=== PATIENT | male | born 1985 | race Caucasian/White ===

== ENCOUNTER 2019-04-24 | Emergency (ER) | payer OTHER ==
[2019-04-24 03:04] LABS: HEMATOCRIT 50.5 % (39.0-50.0); HEMOGLOBIN 16.7 g/dl (14.0-18.0); IMMATURE GRANULOCYTES 0.3 % (0.0-5.0); MEAN CELL VOLUME 88.6 fL CALC (80.0-100.0); MEAN CORPUSCULAR HGB 29.3 pG CALC (26.0-32.0); MEAN CORPUSCULAR HGB CONC 33.1 g/L CALC (32.0-36.0); NEUT# 9.28 thou/uL (1.82-7.42); RED BLOOD COUNT 5.7 mill/uL (4.70-6.10); RED CELL DISTRI WIDTH 12.7 % (11.5-15.5)
[2019-04-24 03:08] LABS: ALBUMIN 4.8 g/dL (3.2-5.0); ALKALINE PHOSPHATASE 68 u/l (38-126); ANION GAP 15 (6-22 (CALC)); BILIRUBIN, TOTAL 0.7 mg/dL (0.0-1.4); BUN 22 mg/dL (9-20); BUN/CREATININE RATIO 24 (12-20 (CALC)); CARBON DIOXIDE 27 mmol/l (22-30); CHLORIDE 102 mmol/l (95-108); CREATININE 0.9 mg/dL (0.7-1.3); GFR > 60 ML/MIN (>=60 (CALC)); GFR FOR AFR.AMER. > 60 ML/MIN (>=60 (CALC)); POTASSIUM 4.3 mmol/l (3.5-5.1); SGOT/AST 35 u/l (17-59); SODIUM 139 mmol/l (137-146); TOTAL PROTEIN 8.8 g/dL (6.3-8.2)
[2019-04-24 03:12] LABS: ACT PARTIAL THROMBO TIME 26.7 SECONDS (20.0-32.5); D-DIMER 0.37 mg/L (0.19-0.60); PROTHROMBIN TIME 10.2 SECONDS (9.0-12.5)
[2019-04-24 03:19] LABS: MYOGLOBIN 24 ng/mL (0 - 121)
--- NOTE | 2019-04-24 03:28 | NUR ---
BREATHING TREATMENT GIVEN.
[2019-04-24] MEDS ORDERED: TAM75CAP PO (04:21)
[2019-04-24] MEDS ORDERED: VOLTAREN - GENE75 MG PO (04:21)
[2019-04-24] MEDS ORDERED: TRAMADOL HCL50 MG PO (04:21)
== END 2019-04-24 04:35 | disposition home or self-care (01) | DRG 195 ==
PROVIDERS: Family Medicine
DX: J10.1 Influenza due to other identified influenza virus with other respiratory manifestations (principal); M54.16 Radiculopathy, lumbar region
CPT/HCPCS: J0131

== ENCOUNTER 2020-04-20 09:54 | Emergency (ER) | payer OTHER ==
[~2020-04-20] VITALS: Ht 193 cm; Wt 172.0 kg
[~2020-04-20 09:54] MED LIST: TAM75CAP PO; TRAMADOL HCL50 MG PO; VOLTAREN - GENE75 MG PO
[2020-04-20 10:35] LABS: HEMATOCRIT 46.8 % (39.0-50.0); HEMOGLOBIN 14.9 g/dl (14.0-18.0); IMMATURE GRANULOCYTES 0.6 % (0.0-5.0); MEAN CELL VOLUME 91.2 fL CALC (80.0-100.0); MEAN CORPUSCULAR HGB CONC 31.8 g/dL CAL (32.0-36.0); NEUT# 3.6 thou/uL (1.82-7.42); RED BLOOD COUNT 5.13 mill/uL (4.70-6.10); RED CELL DISTRI WIDTH 13.1 % (11.5-15.5)
[2020-04-20 11:06] LABS: ALBUMIN 3.9 g/dL (3.2-5.0); ALKALINE PHOSPHATASE 55 u/l (38-126); ANION GAP 12 (6-22 (CALC)); BILIRUBIN, TOTAL 0.7 mg/dL (0.0-1.4); BUN 15 mg/dL (9-20); BUN/CREATININE RATIO 18 (12-20 (CALC)); C-REACTIVE PROTEIN 1.7 mg/dL (0-0.9); CARBON DIOXIDE 25 mmol/l (22-30); CHLORIDE 105 mmol/l (95-108); CREATININE 0.9 mg/dL (0.7-1.3); GFR > 60 ML/MIN (>=60 (CALC)); GFR FOR AFR.AMER. > 60 ML/MIN (>=60 (CALC)); POTASSIUM 4.1 mmol/l (3.5-5.1); SGOT/AST 33 u/l (17-59); SODIUM 137 mmol/l (137-146); TOTAL PROTEIN 6.9 g/dL (6.3-8.2)
[2020-04-20] MEDS ORDERED: ZOFRAN4 M1 PO (12:44)
[2020-04-20] MEDS ORDERED: ZPAK PO (12:44)
[2020-04-20 13:35] VITALS: BP 119/68
== END 2020-04-20 13:40 | disposition home or self-care (01) | DRG 179 ==
LOC: ED 09:54
PROVIDERS: Family Medicine
DX: U07.1 COVID-19 (principal); R07.89 Other chest pain; E66.01 Morbid (severe) obesity due to excess calories

== ENCOUNTER 2020-04-23 12:22 | Inpatient (IN) | payer OTHER ==
[~2020-04-23] VITALS: Ht 193 cm; Wt 171.1 kg
[~2020-04-23 12:22] MED LIST changes: +ZOFRAN4 M1 PO; +ZPAK PO
[2020-04-23 13:40] LABS: IMMATURE GRANULOCYTES 0.4 % (0.0-5.0); MEAN CELL VOLUME 88.3 fL CALC (80.0-100.0); MEAN CORPUSCULAR HGB 28.8 pG CALC (26.0-32.0); MEAN CORPUSCULAR HGB CONC 32.7 g/dL CAL (32.0-36.0); NEUT# 4.9 thou/uL (1.82-7.42); RED BLOOD COUNT 5.55 mill/uL (4.70-6.10); RED CELL DISTRI WIDTH 13.2 % (11.5-15.5)
[2020-04-23 14:08] LABS: ALBUMIN 4.2 g/dL (3.2-5.0); ALKALINE PHOSPHATASE 73 u/l (38-126); ANION GAP 13 (6-22 (CALC)); BUN 13 mg/dL (9-20); BUN/CREATININE RATIO 17 (12-20 (CALC)); CARBON DIOXIDE 28 mmol/l (22-30); CHLORIDE 105 mmol/l (95-108); CREATININE 0.8 mg/dL (0.7-1.3); GFR > 60 ML/MIN (>=60 (CALC)); GFR FOR AFR.AMER. > 60 ML/MIN (>=60 (CALC)); POTASSIUM 4.2 mmol/l (3.5-5.1); SGOT/AST 53 u/l (17-59); SODIUM 141 mmol/l (137-146); TOTAL PROTEIN 7.4 g/dL (6.3-8.2)
[2020-04-23 19:05] VITALS: BP 170/86
[2020-04-24 00:10] VITALS: BP 149/83
[2020-04-24 04:00] VITALS: BP 145/90
[2020-04-24 10:50] VITALS: BP 129/78
[2020-04-24 16:00] VITALS: BP 135/88
[2020-04-24 20:00] VITALS: BP 168/81
[2020-04-25] VITALS (7 sets, daily range): BP systolic 107–161; BP diastolic 64–88
[2020-04-25 05:57] LABS: IMMATURE GRANULOCYTES 0.2 % (0.0-5.0); MEAN CELL VOLUME 89.8 fL CALC (80.0-100.0); MEAN CORPUSCULAR HGB 28.9 pG CALC (26.0-32.0); MEAN CORPUSCULAR HGB CONC 32.2 g/dL CAL (32.0-36.0); NEUT# 5.66 thou/uL (1.82-7.42); RED BLOOD COUNT 4.71 mill/uL (4.70-6.10)
[2020-04-25 06:15] LABS: HEMATOCRIT 42.3 % (39.0-50.0); HEMOGLOBIN 13.6 g/dl (14.0-18.0)
[2020-04-25 06:18] LABS: ALKALINE PHOSPHATASE 60 u/l (38-126); ANION GAP 11 (6-22 (CALC)); BUN 18 mg/dL (9-20); BUN/CREATININE RATIO 22 (12-20 (CALC)); CARBON DIOXIDE 26 mmol/l (22-30); CHLORIDE 109 mmol/l (95-108); CREATININE 0.8 mg/dL (0.7-1.3); GFR > 60 ML/MIN (>=60 (CALC)); GFR FOR AFR.AMER. > 60 ML/MIN (>=60 (CALC)); POTASSIUM 4.1 mmol/l (3.5-5.1); SGOT/AST 55 u/l (17-59); SODIUM 141 mmol/l (137-146)
[2020-04-25 06:28] LABS: ALBUMIN 3.3 g/dL (3.2-5.0); BILIRUBIN, TOTAL 0.5 mg/dL (0.0-1.4)
[2020-04-26] VITALS: BP 147/76
[2020-04-26 04:00] VITALS: BP 116/75
[2020-04-26 07:40] VITALS: BP 111/70
[2020-04-26 10:30] VITALS: BP 135/79
[2020-04-26 15:00] VITALS: BP 151/84
[2020-04-26 19:00] VITALS: BP 155/95
[2020-04-27] VITALS: BP 152/87
[2020-04-27 04:00] VITALS: BP 125/87
[2020-04-27 06:22] LABS: HEMATOCRIT 43.7 % (39.0-50.0); IMMATURE GRANULOCYTES 0.8 % (0.0-5.0); MEAN CELL VOLUME 89.9 fL CALC (80.0-100.0); MEAN CORPUSCULAR HGB 28.8 pG CALC (26.0-32.0); NEUT# 8.74 thou/uL (1.82-7.42); RED BLOOD COUNT 4.86 mill/uL (4.70-6.10); RED CELL DISTRI WIDTH 12.8 % (11.5-15.5)
[2020-04-27 06:48] LABS: ALBUMIN 3.4 g/dL (3.2-5.0); ALKALINE PHOSPHATASE 57 u/l (38-126); ANION GAP 12 (6-22 (CALC)); BILIRUBIN, TOTAL 0.4 mg/dL (0.0-1.4); BUN 14 mg/dL (9-20); BUN/CREATININE RATIO 18 (12-20 (CALC)); C-REACTIVE PROTEIN 0.6 mg/dL (0-0.9); CARBON DIOXIDE 25 mmol/l (22-30); CHLORIDE 105 mmol/l (95-108); CREATININE 0.8 mg/dL (0.7-1.3); GFR > 60 ML/MIN (>=60 (CALC)); GFR FOR AFR.AMER. > 60 ML/MIN (>=60 (CALC)); POTASSIUM 4.3 mmol/l (3.5-5.1); SGOT/AST 34 u/l (17-59); SODIUM 139 mmol/l (137-146); TOTAL PROTEIN 6.1 g/dL (6.3-8.2)
[2020-04-27 08:39] VITALS: BP 149/85
[2020-04-27 11:08] VITALS: BP 143/74
[2020-04-27 15:30] VITALS: BP 126/82
[2020-04-27 19:00] VITALS: BP 137/80
[2020-04-28 04:00] VITALS: BP 119/73
[2020-04-28 08:25] VITALS: BP 125/77
[2020-04-28] MEDS ORDERED: DEXAMETHASON6 MG PO (15:01)
[2020-04-28] MEDS ORDERED: ALPRAZOLAM0.5 M2 PO (15:02)
[2020-04-28 15:38] VITALS: BP 137/85
== END 2020-04-28 16:07 | disposition home or self-care (01) | DRG 177 ==
LOC: ED 12:22 → ED-I 17:06 → ED 17:14 → MS2 17:15
PROVIDERS: Nurse Practitioner; Physician Assistant; ADMIT Internal Medicine; ATTEND Internal Medicine
PROC: XW033E5 Introduction of Remdesivir Anti-infective into Peripheral Vein, Percutaneous Approach, New Technology Group 5 (ICD-10-PCS; principal; 2020-04-24)
DX: U07.1 COVID-19 (principal); J12.82 Pneumonia due to coronavirus disease 2019; J96.01 Acute respiratory failure with hypoxia; Z68.42 Body mass index [BMI] 45.0-49.9, adult; R50.9 Fever, unspecified; R53.1 Weakness; J10.1 Influenza due to other identified influenza virus with other respiratory manifestations; E66.9 Obesity, unspecified; E86.0 Dehydration; F41.9 Anxiety disorder, unspecified
CPT/HCPCS: J1650; Q9967

== ENCOUNTER 2020-05-21 20:13 | Emergency (ER) | payer OTHER ==
[~2020-05-21] VITALS: Ht 193 cm; Wt 172.7 kg
[~2020-05-21 20:13] MED LIST changes: +ALPRAZOLAM0.5 M2 PO; +DEXAMETHASON6 MG PO
[2020-05-21 21:46] LABS: HEMATOCRIT 46.6 % (39.0-50.0); IMMATURE GRANULOCYTES 0.6 % (0.0-5.0); MEAN CORPUSCULAR HGB 29.3 pG CALC (26.0-32.0); MEAN CORPUSCULAR HGB CONC 32.2 g/dL CAL (32.0-36.0); NEUT# 5.61 thou/uL (1.82-7.42); RED BLOOD COUNT 5.12 mill/uL (4.70-6.10); RED CELL DISTRI WIDTH 13.4 % (11.5-15.5)
[2020-05-21] MEDS ORDERED: ESCITALOPRAM OXA5 MG PO (21:52)
[2020-05-21 22:06] LABS: INTERNATIONAL NORMALIZED RATIO 1.1 RATIO (0.7-1.3); PROTHROMBIN TIME 10.9 SECONDS (9.0-12.5)
[2020-05-21 22:17] LABS: ALKALINE PHOSPHATASE 74 u/l (38-126); ANION GAP 10 (6-22 (CALC)); BILIRUBIN, TOTAL 0.4 mg/dL (0.0-1.4); BUN 17 mg/dL (9-20); BUN/CREATININE RATIO 20 (12-20 (CALC)); CARBON DIOXIDE 29 mmol/l (22-30); CHLORIDE 104 mmol/l (95-108); CREATININE 0.8 mg/dL (0.7-1.3); GFR > 60 ML/MIN (>=60 (CALC)); GFR FOR AFR.AMER. > 60 ML/MIN (>=60 (CALC)); POTASSIUM 4.1 mmol/l (3.5-5.1); SGOT/AST 29 u/l (17-59); SODIUM 138 mmol/l (137-146)
[2020-05-21 22:21] LABS: ALBUMIN 4.1 g/dL (3.2-5.0); TOTAL PROTEIN 7.4 g/dL (6.3-8.2)
[2020-05-21 22:29] LABS: MYOGLOBIN 28 ng/mL (0 - 121)
[2020-05-22 01:15] VITALS: BP 131/85
== END 2020-05-22 01:15 | disposition home or self-care (01) | DRG 204 ==
LOC: ED 20:13
PROVIDERS: Family Medicine
DX: R06.02 Shortness of breath (principal); R53.1 Weakness; R05 Cough; Z86.16 Personal history of COVID-19; Z20.822 Contact with and (suspected) exposure to COVID-19; R09.02 Hypoxemia
CPT/HCPCS: Q9967

== ENCOUNTER 2020-07-14 02:52 | Emergency (ER) | payer OTHER ==
[~2020-07-14] VITALS: Ht 193 cm; Wt 177.0 kg
[~2020-07-14 02:52] MED LIST changes: +ESCITALOPRAM OXA5 MG PO
[2020-07-14] MEDS ORDERED: OXYCOD/APAP1 TA1 PO (03:18)
[2020-07-14] MEDS ORDERED: PERCOCET 5/325M1 TAB PO (04:47)
[2020-07-14 05:29] VITALS: BP 126/69
== END 2020-07-14 05:25 | disposition home or self-care (01) | DRG 563 ==
LOC: ED 02:52
DX: S39.012A Strain of muscle, fascia and tendon of lower back, initial encounter (principal); F41.9 Anxiety disorder, unspecified; X58.XXXA Exposure to other specified factors, initial encounter; Z86.16 Personal history of COVID-19

== ENCOUNTER 2020-10-09 11:55 | Emergency (ER) | payer OTHER ==
[~2020-10-09] VITALS: Ht 193 cm; Wt 181.8 kg
[~2020-10-09 11:55] MED LIST changes: +OXYCOD/APAP1 TA1 PO; +PERCOCET 5/325M1 TAB PO
[2020-10-09 12:42] LABS: HEMATOCRIT 46.8 % (39.0-50.0); HEMOGLOBIN 15.5 g/dl (14.0-18.0); IMMATURE GRANULOCYTES 0.5 % (0.0-5.0); MEAN CELL VOLUME 89.3 fL CALC (80.0-100.0); MEAN CORPUSCULAR HGB 29.6 pG CALC (26.0-32.0); MEAN CORPUSCULAR HGB CONC 33.1 g/dL CAL (32.0-36.0); NEUT# 5.9 thou/uL (1.82-7.42); RED BLOOD COUNT 5.24 mill/uL (4.70-6.10); RED CELL DISTRI WIDTH 13.1 % (11.5-15.5)
[2020-10-09 13:05] LABS: ALBUMIN 4.3 g/dL (3.2-5.0); ALKALINE PHOSPHATASE 73 u/l (38-126); AMYLASE 55 u/l (30-110); ANION GAP 12 (6-22 (CALC)); BILIRUBIN, TOTAL 0.5 mg/dL (0.0-1.4); BUN 15 mg/dL (9-20); BUN/CREATININE RATIO 18 (12-20 (CALC)); CARBON DIOXIDE 29 mmol/l (22-30); CHLORIDE 102 mmol/l (95-108); CREATININE 0.8 mg/dL (0.7-1.3); GFR > 60 ML/MIN (>=60 (CALC)); GFR FOR AFR.AMER. > 60 ML/MIN (>=60 (CALC)); LIPASE 79 u/l (23-300); POTASSIUM 4.2 mmol/l (3.5-5.1); SGOT/AST 35 u/l (17-59); SODIUM 139 mmol/l (137-146); TOTAL PROTEIN 7.9 g/dL (6.3-8.2)
[2020-10-09 13:18] LABS: MYOGLOBIN 27 ng/mL (0 - 121)
[2020-10-09] MEDS ORDERED: METAXALONE800 M1 PO (13:27)
[2020-10-09] MEDS ORDERED: CELEBREX400 MG PO (13:28)
[2020-10-09 14:14] LABS: URINE BILIRUBIN - DIPSTICK NEGATIVE (NEGATIVE); URINE BLOOD DIPSTICK NEGATIVE (NEGATIVE); URINE COLOR YELLOW; URINE GLUCOSE - DIPSTICK NEGATIVE (NEGATIVE); URINE KETONE NEGATIVE (NEGATIVE); URINE LEUK ESTERASE NEGATIVE (NEGATIVE); URINE PH 5.5 (4.5-8.0); URINE PROTEIN - DIPSTICK NEGATIVE (NEG-TRACE); URINE SPECIFIC GRAVITY >=1.030; URINE UROBILINOGEN - DIPSTICK 0.2 E.U./dL (0.2)
[2020-10-09 14:34] LABS: URINE NITRITE - DIPSTICK NEGATIVE (Negative)
[2020-10-09] MEDS ORDERED: MOTRIN800 MG PO (19:25)
[2020-10-09 20:07] VITALS: BP 134/66
[2020-10-25] MEDS ORDERED: ALBUTEROL SUL0.083 % IN (18:38)
== END 2020-10-09 20:15 | disposition home or self-care (01) | DRG 204 ==
LOC: ED 11:55
PROVIDERS: Emergency Medicine
DX: R06.02 Shortness of breath (principal); R07.9 Chest pain, unspecified; F41.9 Anxiety disorder, unspecified; J98.4 Other disorders of lung; Z86.16 Personal history of COVID-19; Z82.49 Family history of ischemic heart disease and other diseases of the circulatory system; R07.89 Other chest pain
CPT/HCPCS: Q9967

== ENCOUNTER 2021-05-22 09:06 | Emergency (ER) | payer OTHER, MEDICAID ==
[~2021-05-22] VITALS: Ht 193 cm; Wt 189.0 kg
[~2021-05-22 09:06] MED LIST changes: +ALBUTEROL SUL0.083 % IN; +CELEBREX400 MG PO; +METAXALONE800 M1 PO; +MOTRIN800 MG PO
[2021-05-22] MEDS ORDERED: LORTAB 1010 MG PO (09:38)
[2021-05-22 09:50] VITALS: BP 128/59
== END 2021-05-22 09:50 | disposition home or self-care (01) | DRG 552 ==
LOC: ED 09:06
DX: M54.41 Lumbago with sciatica, right side (principal); Z68.43 Body mass index [BMI] 50.0-59.9, adult; E66.9 Obesity, unspecified; F41.9 Anxiety disorder, unspecified; Z86.16 Personal history of COVID-19

== ENCOUNTER 2021-05-26 11:40 | Emergency (ER) | payer OTHER, MEDICAID ==
[~2021-05-26] VITALS: Ht 193 cm; Wt 188.0 kg
[~2021-05-26 11:40] MED LIST changes: +LORTAB 1010 MG PO
[2021-05-26] MEDS ORDERED: EPIPEN 2-P0.3 MG/0.3 IM (14:52)
[2021-05-26] MEDS ORDERED: PREDNISONE50 MG PO (14:52)
[2021-05-26 15:57] VITALS: BP 149/71
== END 2021-05-26 15:57 | disposition home or self-care (01) | DRG 607 ==
LOC: ED 11:40
DX: L50.0 Allergic urticaria (principal); E66.9 Obesity, unspecified; F41.9 Anxiety disorder, unspecified; Z86.16 Personal history of COVID-19

== ENCOUNTER 2021-06-07 03:33 | Emergency (ER) | payer OTHER, MEDICAID ==
[~2021-06-07] VITALS: Ht 193 cm; Wt 188.0 kg
[~2021-06-07 03:33] MED LIST changes: +EPIPEN 2-P0.3 MG/0.3 IM; +PREDNISONE50 MG PO
[2021-06-07 05:30] VITALS: BP 98/64
[2021-06-07 06:00] VITALS: BP 119/72
[2021-06-07] MEDS ORDERED: MEDDOSEPAK PO (06:05)
[2021-06-07 06:30] VITALS: BP 118/74
[2021-06-07 07:00] VITALS: BP 124/75
[2021-06-07 07:19] VITALS: BP 124/75
== END 2021-06-07 07:16 | disposition home or self-care (01) | DRG 607 ==
LOC: ED 03:33
DX: L50.0 Allergic urticaria (principal); F41.9 Anxiety disorder, unspecified; Z86.16 Personal history of COVID-19

== ENCOUNTER 2021-06-13 07:06 | Emergency (ER) | payer OTHER, MEDICAID ==
[~2021-06-13] VITALS: Ht 193 cm; Wt 150.0 kg
[~2021-06-13 07:06] MED LIST changes: +MEDDOSEPAK PO
[2021-06-13 09:00] VITALS: BP 115/69
[2021-06-13] MEDS ORDERED: PREDNISONE20 MG PO ×2 (14:33→14:43)
[2021-06-13] MEDS ORDERED: PREDNISONE10 MG PO (14:33)
[2021-06-13] MEDS ORDERED: BENADRYL25 M1 PO (14:44)
[2021-06-13] MEDS ORDERED: PEPCID40 MG PO (14:44)
== END 2021-06-13 13:30 | disposition home or self-care (01) | DRG 607 ==
LOC: ED 07:06
DX: L50.0 Allergic urticaria (principal); F41.9 Anxiety disorder, unspecified; Z86.16 Personal history of COVID-19

== ENCOUNTER 2021-12-09 02:45 | Emergency (ER) | payer OTHER, MEDICAID ==
[~2021-12-09] VITALS: Ht 193 cm; Wt 184.0 kg
[2021-12-09] VITALS (9 sets, daily range): BP systolic 125–175; BP diastolic 77–125
[~2021-12-09 02:45] MED LIST changes: +BENADRYL25 M1 PO; +PEPCID40 MG PO; +PREDNISONE10 MG PO; +PREDNISONE20 MG PO
[2021-12-09] MEDS ORDERED: BACLOFEN10 MG PO (03:12)
[2021-12-09] MEDS ORDERED: ZYRTEC10 MG PO (03:13)
[2021-12-09 03:23] LABS: HEMATOCRIT 45.9 % (39.0-50.0); HEMOGLOBIN 15.2 g/dl (14.0-18.0); IMMATURE GRANULOCYTES 0.1 % (0.0-5.0); MEAN CELL VOLUME 89.8 fL CALC (80.0-100.0); MEAN CORPUSCULAR HGB 29.7 pG CALC (26.0-32.0); MEAN CORPUSCULAR HGB CONC 33.1 g/dL CAL (32.0-36.0); NEUT# 5.58 thou/uL (1.82-7.42); RED BLOOD COUNT 5.11 mill/uL (4.70-6.10); RED CELL DISTRI WIDTH 12.9 % (11.5-15.5)
[2021-12-09 03:37] LABS: ALBUMIN 4.3 g/dL (3.2-5.0); ALKALINE PHOSPHATASE 94 u/l (38-126); ANION GAP 12 (6-22 (CALC)); BILIRUBIN, TOTAL 0.4 mg/dL (0.0-1.4); BUN 14 mg/dL (9-20); BUN/CREATININE RATIO 18 (12-20 (CALC)); CARBON DIOXIDE 29 mmol/l (22-30); CHLORIDE 103 mmol/l (95-108); CREATININE 0.8 mg/dL (0.7-1.3); GFR FOR AFR.AMER. > 60 ML/MIN (>=60 (CALC)); GFR OTHER RACES > 60 ML/MIN (>=60 (CALC)); SGOT/AST 31 u/l (17-59); SODIUM 141 mmol/l (137-146); TOTAL PROTEIN 7.6 g/dL (6.3-8.2)
[2021-12-09] MEDS ORDERED: FIORICET PO (05:10)
[2021-12-09] MEDS ORDERED: ONDANSETRON4 MG PO (05:11)
[2021-12-12] MEDS ORDERED: VENTOLIN HFA IN (14:15)
[2021-12-12] MEDS ORDERED: IMITREX25 MG PO (14:15)
== END 2021-12-09 05:38 | disposition home or self-care (01) | DRG 103 ==
LOC: ED 02:45
PROVIDERS: Emergency Medicine
DX: G43.909 Migraine, unspecified, not intractable, without status migrainosus (principal); I10 Essential (primary) hypertension; F41.9 Anxiety disorder, unspecified; Z86.16 Personal history of COVID-19

== ENCOUNTER 2021-12-13 08:32 | Day surgery (SDC) | payer OTHER, MEDICAID ==
[~2021-12-13] VITALS: Ht 193 cm; Wt 185.1 kg
[~2021-12-13 08:32] MED LIST changes: +BACLOFEN10 MG PO; +FIORICET PO; +IMITREX25 MG PO; +ONDANSETRON4 MG PO; +VENTOLIN HFA IN; +ZYRTEC10 MG PO
[2021-12-13 10:57] VITALS: BP 116/75
== END 2021-12-13 10:41 | disposition home or self-care (01) | DRG 556 ==
LOC: ORM 08:32
PROVIDERS: ATTEND Physical Medicine & Rehabilitation
DX: M79.18 Myalgia, other site (principal); M54.89 Other dorsalgia; G89.4 Chronic pain syndrome

== ENCOUNTER 2021-12-16 15:33 | Emergency (ER) | payer OTHER, MEDICAID ==
[~2021-12-16] VITALS: Ht 193 cm; Wt 184.0 kg
[2021-12-16 16:09] VITALS: BP 126/87
[2021-12-16 16:19] LABS: HEMATOCRIT 48.9 % (39.0-50.0); HEMOGLOBIN 16.1 g/dl (14.0-18.0); IMMATURE GRANULOCYTES 0.3 % (0.0-5.0); MEAN CELL VOLUME 89.6 fL CALC (80.0-100.0); MEAN CORPUSCULAR HGB 29.5 pG CALC (26.0-32.0); MEAN CORPUSCULAR HGB CONC 32.9 g/dL CAL (32.0-36.0); NEUT# 10.19 thou/uL (1.82-7.42); RED BLOOD COUNT 5.46 mill/uL (4.70-6.10); RED CELL DISTRI WIDTH 13.1 % (11.5-15.5)
[2021-12-16 16:30] VITALS: BP 126/75
[2021-12-16 16:43] LABS: ALBUMIN 4.6 g/dL (3.2-5.0); ALKALINE PHOSPHATASE 71 u/l (38-126); ANION GAP 18 (6-22 (CALC)); BUN 18 mg/dL (9-20); BUN/CREATININE RATIO 21 (12-20 (CALC)); CARBON DIOXIDE 24 mmol/l (22-30); CHLORIDE 104 mmol/l (95-108); CREATININE 0.9 mg/dL (0.7-1.3); GFR FOR AFR.AMER. > 60 ML/MIN (>=60 (CALC)); GFR OTHER RACES > 60 ML/MIN (>=60 (CALC)); POTASSIUM 4.5 mmol/l (3.5-5.1); SGOT/AST 24 u/l (17-59); SODIUM 142 mmol/l (137-146); TOTAL PROTEIN 7.8 g/dL (6.3-8.2)
[2021-12-16 16:47] LABS: BILIRUBIN, TOTAL 0.6 mg/dL (0.0-1.4)
[2021-12-16 17:00] VITALS: BP 116/72
[2021-12-16 17:30] VITALS: BP 118/73
[2021-12-16 17:53] VITALS: BP 118/73
[2021-12-16] MEDS ORDERED: TORADOL PO (17:53)
[2021-12-16] MEDS ORDERED: REGLAN10 MG PO (17:53)
== END 2021-12-16 18:03 | disposition home or self-care (01) | DRG 103 ==
LOC: ED 15:33
PROVIDERS: Family Medicine
DX: G43.909 Migraine, unspecified, not intractable, without status migrainosus (principal); F41.9 Anxiety disorder, unspecified; Z86.16 Personal history of COVID-19

== ENCOUNTER 2022-03-14 08:00 | Day surgery (SDC) | payer OTHER ==
[~2022-03-14 08:00] MED LIST changes: +REGLAN10 MG PO; +TORADOL PO
[2022-03-14] MEDS ORDERED: ASPIRIN81 MG PO (08:20)
[2022-03-14] MEDS ORDERED: FEXOFENADINE H180 M1 PO (08:20)
[2022-03-14] MEDS ORDERED: ACETAMINOP160 MG/5 M PO (08:20)
[2022-03-14] MEDS ORDERED: CHLORTHALIDONE25 MG PO (08:21)
[2022-03-14 10:59] VITALS: BP 136/78
== END 2022-03-14 11:10 | disposition home or self-care (01) | DRG 556 ==
LOC: ORM 08:00
PROVIDERS: ATTEND Physical Medicine & Rehabilitation Pain Medicine
DX: M79.18 Myalgia, other site (principal)

== ENCOUNTER 2022-04-06 14:35 | Emergency (ER) | payer OTHER ==
[2022-04-06] VITALS (9 sets, daily range): BP systolic 107–133; BP diastolic 71–100
[~2022-04-06] VITALS: Ht 193 cm; Wt 176.5 kg
[~2022-04-06 14:35] MED LIST changes: +ACETAMINOP160 MG/5 M PO; +ASPIRIN81 MG PO; +CHLORTHALIDONE25 MG PO; +FEXOFENADINE H180 M1 PO
[2022-04-06 15:59] LABS: HEMATOCRIT 45.7 % (39.0-50.0); HEMOGLOBIN 15.5 g/dl (14.0-18.0); IMMATURE GRANULOCYTES 0.2 % (0.0-5.0); MEAN CELL VOLUME 87.9 fL CALC (80.0-100.0); MEAN CORPUSCULAR HGB 29.8 pG CALC (26.0-32.0); MEAN CORPUSCULAR HGB CONC 33.9 g/dL CAL (32.0-36.0); NEUT# 9.4 thou/uL (1.82-7.42); RED BLOOD COUNT 5.2 mill/uL (4.70-6.10)
[2022-04-06 16:04] LABS: ALBUMIN 4.5 g/dL (3.2-5.0); ALKALINE PHOSPHATASE 85 u/l (38-126); ANION GAP 10 (6-22 (CALC)); BILIRUBIN, TOTAL 0.7 mg/dL (0.0-1.4); BUN 16 mg/dL (9-20); BUN/CREATININE RATIO 17 (12-20 (CALC)); CARBON DIOXIDE 32 mmol/l (22-30); CHLORIDE 99 mmol/l (95-108); CREATININE 0.9 mg/dL (0.7-1.3); GFR FOR AFR.AMER. > 60 ML/MIN (>=60 (CALC)); GFR OTHER RACES > 60 ML/MIN (>=60 (CALC)); LIPASE 100 u/l (23-300); POTASSIUM 3.3 mmol/l (3.5-5.1); SGOT/AST 82 u/l (17-59); SODIUM 138 mmol/l (137-146)
[2022-04-06 16:57] LABS: URINE BILIRUBIN - DIPSTICK NEGATIVE (NEGATIVE); URINE BLOOD DIPSTICK NEGATIVE (NEGATIVE); URINE COLOR YELLOW; URINE GLUCOSE - DIPSTICK NEGATIVE (NEGATIVE); URINE KETONE NEGATIVE (NEGATIVE); URINE LEUK ESTERASE NEGATIVE (NEGATIVE); URINE PROTEIN - DIPSTICK NEGATIVE (NEG-TRACE); URINE UROBILINOGEN - DIPSTICK 0.2 E.U./dL (0.2)
[2022-04-06 16:58] LABS: URINE NITRITE - DIPSTICK NEGATIVE (Negative)
== END 2022-04-06 17:52 | disposition home or self-care (01) | DRG 392 ==
LOC: ED 14:35
PROVIDERS: Emergency Medicine
DX: R10.9 Unspecified abdominal pain (principal); I10 Essential (primary) hypertension; Z86.16 Personal history of COVID-19
CPT/HCPCS: Q9967

== ENCOUNTER 2022-09-07 13:01 | Emergency (ER) | payer OTHER ==
[2022-09-07] VITALS (23 sets, daily range): BP systolic 92–144; BP diastolic 43–102
[~2022-09-07] VITALS: Ht 193 cm; Wt 185.0 kg
[2022-09-07 13:47] LABS: BASO% 0.4 % (0-3); EOS% 0.3 % (0-8); HEMATOCRIT 48.5 % (39.0-50.0); HEMOGLOBIN 15.9 g/dl (14.0-18.0); IMMATURE GRANULOCYTES 0.1 % (0.0-5.0); LYMPH% 14.6 % (15-41); MEAN CELL VOLUME 87.1 fL CALC (80.0-100.0); MEAN CORPUSCULAR HGB 28.5 pG CALC (26.0-32.0); MEAN CORPUSCULAR HGB CONC 32.8 g/dL CAL (32.0-36.0); NEUT# 8.76 thou/uL (1.82-7.42); NEUT% 78.6 % (42-76); RED BLOOD COUNT 5.57 mill/uL (4.70-6.10)
[2022-09-07 14:44] LABS: ALBUMIN 4.3 g/dL (3.2-5.0); ALKALINE PHOSPHATASE 56 u/l (38-126); ANION GAP 15 (6-22 (CALC)); BUN 14 mg/dL (9-20); BUN/CREATININE RATIO 16 (12-20 (CALC)); CARBON DIOXIDE 24 mmol/l (22-30); CHLORIDE 99 mmol/l (95-108); CREATININE 0.9 mg/dL (0.7-1.3); GFR FOR AFR.AMER. > 60 ML/MIN (>=60 (CALC)); GFR OTHER RACES > 60 ML/MIN (>=60 (CALC)); POTASSIUM 3.7 mmol/l (3.5-5.1); SGOT/AST 31 u/l (17-59); SODIUM 134 mmol/l (137-146); TOTAL PROTEIN 7.2 g/dL (6.3-8.2)
[2022-09-07 14:46] LABS: BILIRUBIN, TOTAL 1.4 mg/dL (0.2-1.3)
[2022-09-07] MEDS ORDERED: EPIPEN 2-P0.3 MG/0.3 IM (18:02)
[2022-09-07] MEDS ORDERED: PREDNISONE50 MG PO (18:02)
[2022-09-08] MEDS ORDERED: IPRATROPIU0.5 MG/3 M IN (07:08)
[2022-09-08] MEDS ORDERED: ALBUTEROL SUL0.083 % IN (07:08)
[2022-09-08] MEDS ORDERED: VENTOLIN HFA108 MCG PO (07:08)
[2022-09-08] MEDS ORDERED: ATIVAN0.5 MG PO (09:17)
[2022-09-08] MEDS ORDERED: NEURONTIN400 MG PO (20:05)
[2022-09-08] MEDS ORDERED: BUPROPION HCL150 MG PO (20:09)
[2022-09-08] MEDS ORDERED: MOUNJARO12.5 MG SC (20:13)
== END 2022-09-07 18:55 | disposition home or self-care (01) | DRG 916 ==
LOC: ED 13:01
PROVIDERS: Family Medicine
DX: T78.40XA Allergy, unspecified, initial encounter (principal); E66.01 Morbid (severe) obesity due to excess calories; F41.9 Anxiety disorder, unspecified; Z86.16 Personal history of COVID-19; Z20.822 Contact with and (suspected) exposure to COVID-19; X58.XXXA Exposure to other specified factors, initial encounter
CPT/HCPCS: J2060

== ENCOUNTER 2022-09-08 14:03 | Inpatient (IN) | payer OTHER ==
[2022-09-08] VITALS (18 sets, daily range): BP systolic 110–148; BP diastolic 55–96
[~2022-09-08] VITALS: Ht 193 cm; Wt 162.0 kg
[~2022-09-08 14:03] MED LIST changes: +ATIVAN0.5 MG PO; +IPRATROPIU0.5 MG/3 M IN; +VENTOLIN HFA108 MCG PO
[2022-09-08 14:23] LABS: HEMOGLOBIN 16.2 g/dl (14.0-18.0); IMMATURE GRANULOCYTES 0.2 % (0.0-5.0); LYMPH% 4.8 % (15-41); MEAN CORPUSCULAR HGB 28.4 pG CALC (26.0-32.0); MEAN CORPUSCULAR HGB CONC 33.1 g/dL CAL (32.0-36.0); MONO% 5.4 % (2-13); NEUT# 20.16 thou/uL (1.82-7.42); NEUT% 89.6 % (42-76); RED BLOOD COUNT 5.7 mill/uL (4.70-6.10); RED CELL DISTRI WIDTH 12.5 % (11.5-15.5)
[2022-09-08 14:39] LABS: ALBUMIN 4.6 g/dL (3.2-5.0); ALKALINE PHOSPHATASE 78 u/l (38-126); ANION GAP 17 (6-22 (CALC)); BILIRUBIN, TOTAL 0.7 mg/dL (0.2-1.3); BUN 20 mg/dL (9-20); BUN/CREATININE RATIO 19 (12-20 (CALC)); CARBON DIOXIDE 23 mmol/l (22-30); CHLORIDE 101 mmol/l (95-108); GFR FOR AFR.AMER. > 60 ML/MIN (>=60 (CALC)); GFR OTHER RACES > 60 ML/MIN (>=60 (CALC)); POTASSIUM 3.2 mmol/l (3.5-5.1); SGOT/AST 31 u/l (17-59); SODIUM 138 mmol/l (137-146)
[2022-09-08] MEDS ORDERED: NEURONTIN400 MG PO (20:05)
[2022-09-08] MEDS ORDERED: BUPROPION HCL150 MG PO (20:09)
[2022-09-08] MEDS ORDERED: MOUNJARO12.5 MG SC (20:13)
[2022-09-09 04:09] VITALS: BP 127/73
[2022-09-09 05:15] VITALS: BP 127/73
[2022-09-09 05:29] LABS: BASO% 0.2 % (0-3); HEMATOCRIT 46.6 % (39.0-50.0); HEMOGLOBIN 15.1 g/dl (14.0-18.0); IMMATURE GRANULOCYTES 0.2 % (0.0-5.0); MEAN CELL VOLUME 88.3 fL CALC (80.0-100.0); MEAN CORPUSCULAR HGB 28.6 pG CALC (26.0-32.0); MEAN CORPUSCULAR HGB CONC 32.4 g/dL CAL (32.0-36.0); MONO% 4.7 % (2-13); NEUT# 15.84 thou/uL (1.82-7.42); NEUT% 89.9 % (42-76); RED BLOOD COUNT 5.28 mill/uL (4.70-6.10); RED CELL DISTRI WIDTH 12.9 % (11.5-15.5)
[2022-09-09 05:47] LABS: ALBUMIN 3.8 g/dL (3.2-5.0); ALKALINE PHOSPHATASE 60 u/l (38-126); BILIRUBIN, TOTAL 0.5 mg/dL (0.2-1.3); BUN 19 mg/dL (9-20); BUN/CREATININE RATIO 24 (12-20 (CALC)); CARBON DIOXIDE 23 mmol/l (22-30); CHLORIDE 103 mmol/l (95-108); CREATININE 0.8 mg/dL (0.7-1.3); GFR FOR AFR.AMER. > 60 ML/MIN (>=60 (CALC)); GFR OTHER RACES > 60 ML/MIN (>=60 (CALC)); SGOT/AST 33 u/l (17-59); SODIUM 136 mmol/l (137-146); TOTAL PROTEIN 7.2 g/dL (6.3-8.2)
[2022-09-09 05:52] LABS: ANION GAP 14 (6-22 (CALC)); POTASSIUM 4.3 mmol/l (3.5-5.1)
[2022-09-09 07:36] VITALS: BP 128/72
[2022-09-09 21:28] VITALS: BP 119/80
[2022-09-10 00:11] VITALS: BP 126/79
[2022-09-10 04:06] VITALS: BP 126/84
[2022-09-10 05:52] LABS: BASO% 0.5 % (0-3); EOS% 0.9 % (0-8); HEMATOCRIT 46.7 % (39.0-50.0); HEMOGLOBIN 14.8 g/dl (14.0-18.0); IMMATURE GRANULOCYTES 0.4 % (0.0-5.0); LYMPH% 21.9 % (15-41); MEAN CELL VOLUME 89.6 fL CALC (80.0-100.0); MEAN CORPUSCULAR HGB 28.4 pG CALC (26.0-32.0); MEAN CORPUSCULAR HGB CONC 31.7 g/dL CAL (32.0-36.0); MONO% 7.6 % (2-13); NEUT# 7.58 thou/uL (1.82-7.42); NEUT% 68.7 % (42-76); RED BLOOD COUNT 5.21 mill/uL (4.70-6.10); RED CELL DISTRI WIDTH 13.2 % (11.5-15.5)
[2022-09-10 06:08] LABS: ALBUMIN 3.8 g/dL (3.2-5.0); ALKALINE PHOSPHATASE 52 u/l (38-126); ANION GAP 10 (6-22 (CALC)); BILIRUBIN, TOTAL 0.4 mg/dL (0.2-1.3); BUN 17 mg/dL (9-20); BUN/CREATININE RATIO 20 (12-20 (CALC)); CARBON DIOXIDE 32 mmol/l (22-30); CHLORIDE 101 mmol/l (95-108); CREATININE 0.8 mg/dL (0.7-1.3); GFR FOR AFR.AMER. > 60 ML/MIN (>=60 (CALC)); GFR OTHER RACES > 60 ML/MIN (>=60 (CALC)); POTASSIUM 3.2 mmol/l (3.5-5.1); SGOT/AST 24 u/l (17-59); SODIUM 140 mmol/l (137-146); TOTAL PROTEIN 6.7 g/dL (6.3-8.2)
[2022-09-10 07:36] VITALS: BP 113/72
[2022-09-10 07:54] VITALS: BP 113/72
[2022-09-10 17:49] LABS: URINE BILIRUBIN - DIPSTICK NEGATIVE (NEGATIVE); URINE BLOOD DIPSTICK NEGATIVE (NEGATIVE); URINE CLARITY CLEAR; URINE COLOR YELLOW; URINE GLUCOSE - DIPSTICK NEGATIVE (NEGATIVE); URINE KETONE NEGATIVE (NEGATIVE); URINE LEUK ESTERASE NEGATIVE (Negative); URINE NITRITE - DIPSTICK NEGATIVE (Negative); URINE PROTEIN - DIPSTICK NEGATIVE (NEG-TRACE); URINE UROBILINOGEN - DIPSTICK 0.2 E.U./dL (0.2)
[2022-09-11 00:09] VITALS: BP 109/75
[2022-09-11 05:05] VITALS: BP 109/76
[2022-09-11 06:19] LABS: BASO% 0.4 % (0-3); EOS% 3.3 % (0-8); HEMATOCRIT 45.2 % (39.0-50.0); HEMOGLOBIN 14.3 g/dl (14.0-18.0); IMMATURE GRANULOCYTES 0.2 % (0.0-5.0); LYMPH% 25.3 % (15-41); MEAN CELL VOLUME 89.9 fL CALC (80.0-100.0); MEAN CORPUSCULAR HGB 28.4 pG CALC (26.0-32.0); MEAN CORPUSCULAR HGB CONC 31.6 g/dL CAL (32.0-36.0); MONO% 8.1 % (2-13); NEUT# 6.16 thou/uL (1.82-7.42); NEUT% 62.7 % (42-76); RED BLOOD COUNT 5.03 mill/uL (4.70-6.10); RED CELL DISTRI WIDTH 13.3 % (11.5-15.5)
[2022-09-11 06:41] LABS: ALBUMIN 3.3 g/dL (3.2-5.0); ALKALINE PHOSPHATASE 54 u/l (38-126); ANION GAP 8 (6-22 (CALC)); BILIRUBIN, TOTAL 0.2 mg/dL (0.2-1.3); BUN 11 mg/dL (9-20); BUN/CREATININE RATIO 13 (12-20 (CALC)); CARBON DIOXIDE 32 mmol/l (22-30); CHLORIDE 102 mmol/l (95-108); CREATININE 0.8 mg/dL (0.7-1.3); GFR FOR AFR.AMER. > 60 ML/MIN (>=60 (CALC)); GFR OTHER RACES > 60 ML/MIN (>=60 (CALC)); MAGNESIUM 2.3 mg/dL (1.6-2.3); POTASSIUM 3.2 mmol/l (3.5-5.1); SGOT/AST 21 u/l (17-59); SODIUM 139 mmol/l (137-146)
[2022-09-11 07:08] VITALS: BP 104/62
[2022-09-11 11:22] VITALS: BP 109/61
[2022-09-11 15:12] VITALS: BP 134/92
[2022-09-11 20:07] VITALS: BP 142/94
[2022-09-12 03:00] VITALS: BP 132/82
[2022-09-12 06:10] LABS: ALKALINE PHOSPHATASE 58 u/l (38-126); ANION GAP 13 (6-22 (CALC)); BUN 15 mg/dL (9-20); BUN/CREATININE RATIO 17 (12-20 (CALC)); CARBON DIOXIDE 30 mmol/l (22-30); CHLORIDE 100 mmol/l (95-108); CREATININE 0.9 mg/dL (0.7-1.3); GFR FOR AFR.AMER. > 60 ML/MIN (>=60 (CALC)); GFR OTHER RACES > 60 ML/MIN (>=60 (CALC)); POTASSIUM 3.1 mmol/l (3.5-5.1); SGOT/AST 29 u/l (17-59); SODIUM 139 mmol/l (137-146); TOTAL PROTEIN 6.9 g/dL (6.3-8.2)
[2022-09-12 06:30] LABS: BILIRUBIN, TOTAL 0.5 mg/dL (0.2-1.3)
[2022-09-12 07:03] VITALS: BP 117/66
[2022-09-12] MEDS ORDERED: MEDDOSEPAK PO (11:52)
[2022-09-12] MEDS ORDERED: VIBRAMYCIN100 M2 PO (11:52)
[2022-09-12] MEDS ORDERED: ABILIFY5 MG PO (11:53)
[2022-09-12] MEDS ORDERED: LORTAB 1010 MG PO (11:56)
== END 2022-09-12 14:23 | disposition home or self-care (01) | DRG 885 ==
LOC: ED 14:03 → ED-I 17:00 → ED 17:40 → MS2 17:41
PROVIDERS: Family Medicine; Nurse Practitioner Family; ADMIT Internal Medicine; ATTEND Internal Medicine
DX: F23 Brief psychotic disorder (principal); J18.9 Pneumonia, unspecified organism; E87.20 Acidosis, unspecified; F11.20 Opioid dependence, uncomplicated; F22 Delusional disorders; T40.495A Adverse effect of other synthetic narcotics, initial encounter; G89.4 Chronic pain syndrome; F32.9 Major depressive disorder, single episode, unspecified; F41.9 Anxiety disorder, unspecified; Z86.16 Personal history of COVID-19; Z91.51 Personal history of suicidal behavior; Z62.810 Personal history of physical and sexual abuse in childhood
CPT/HCPCS: J1650; J2060; Q9967; S0166

== ENCOUNTER 2022-09-19 17:19 | Emergency (ER) | payer OTHER ==
[2022-09-19] VITALS (10 sets, daily range): BP systolic 110–144; BP diastolic 69–85
[~2022-09-19] VITALS: Ht 193 cm; Wt 159.0 kg
[~2022-09-19 17:19] MED LIST changes: +ABILIFY5 MG PO; +BUPROPION HCL150 MG PO; +MOUNJARO12.5 MG SC; +NEURONTIN400 MG PO; +VIBRAMYCIN100 M2 PO
[2022-09-19 18:03] LABS: BASO% 0.3 % (0-3); EOS% 0.9 % (0-8); IMMATURE GRANULOCYTES 0.5 % (0.0-5.0); LYMPH% 17.9 % (15-41); MEAN CELL VOLUME 89.8 fL CALC (80.0-100.0); MEAN CORPUSCULAR HGB 28.5 pG CALC (26.0-32.0); MEAN CORPUSCULAR HGB CONC 31.7 g/dL CAL (32.0-36.0); NEUT# 9.99 thou/uL (1.82-7.42); NEUT% 73.4 % (42-76); RED BLOOD COUNT 5.76 mill/uL (4.70-6.10); RED CELL DISTRI WIDTH 13.1 % (11.5-15.5)
[2022-09-19 18:04] LABS: HEMATOCRIT 51.7 % (39.0-50.0); HEMOGLOBIN 16.4 g/dl (14.0-18.0)
[2022-09-19 18:17] LABS: ALBUMIN 4.1 g/dL (3.2-5.0); ALKALINE PHOSPHATASE 59 u/l (38-126); ANION GAP 14 (6-22 (CALC)); BILIRUBIN, TOTAL 0.6 mg/dL (0.2-1.3); BUN 19 mg/dL (9-20); BUN/CREATININE RATIO 21 (12-20 (CALC)); CARBON DIOXIDE 27 mmol/l (22-30); CHLORIDE 99 mmol/l (95-108); CREATININE 0.9 mg/dL (0.7-1.3); GFR FOR AFR.AMER. > 60 ML/MIN (>=60 (CALC)); GFR OTHER RACES > 60 ML/MIN (>=60 (CALC)); POTASSIUM 3.2 mmol/l (3.5-5.1); SGOT/AST 28 u/l (17-59); SODIUM 136 mmol/l (137-146); TOTAL PROTEIN 7.1 g/dL (6.3-8.2)
== END 2022-09-19 21:53 | disposition home or self-care (01) | DRG 313 ==
LOC: ED 17:19
PROVIDERS: Family Medicine
DX: R07.9 Chest pain, unspecified (principal); I10 Essential (primary) hypertension; E66.01 Morbid (severe) obesity due to excess calories; F41.9 Anxiety disorder, unspecified; Z86.16 Personal history of COVID-19

== ENCOUNTER 2022-12-05 07:07 | Day surgery (SDC) | payer OTHER ==
[~2022-12-05] VITALS: Ht 193 cm; Wt 166.9 kg
[~2022-12-05 07:07] MED LIST changes: +TESTOSTERONE
[2022-12-05] MEDS ORDERED: LORTAB 1010 MG PO (07:26)
[2022-12-05] MEDS ORDERED: CELEBREX100 M1 PO (07:27)
[2022-12-05 09:24] VITALS: BP 120/80
== END 2022-12-05 09:06 | disposition home or self-care (01) | DRG 552 ==
LOC: ORM 07:07 → PO 07:07 → ORM 08:00
PROVIDERS: ATTEND Physical Medicine & Rehabilitation
DX: M53.3 Sacrococcygeal disorders, not elsewhere classified (principal); G89.4 Chronic pain syndrome; M54.16 Radiculopathy, lumbar region; M54.9 Dorsalgia, unspecified; M79.18 Myalgia, other site; E66.9 Obesity, unspecified; M46.1 Sacroiliitis, not elsewhere classified
CPT/HCPCS: Q9966

== ENCOUNTER 2023-11-26 09:27 | Day surgery (SDC) | payer OTHER ==
[~2023-11-26] VITALS: Ht 193 cm; Wt 176.0 kg
[~2023-11-26 09:27] MED LIST changes: +CELEBREX100 M1 PO
[2023-11-26] MEDS ORDERED: FAMOTIDINE 10MG/ML 2ML SDV IV ONE (09:31)
[2023-11-26] MEDS ORDERED: ceFAZolin Sodium 2 GM/VIAL SDV ONE (09:31)
[2023-11-26] MEDS ORDERED: SODIUM CHLORIDE 0.9% 100 ML IV ONE (09:31)
[2023-11-26] MEDS ORDERED: LACTATED RINGER'S 1,000 ML IV ONE ×2 (09:32→13:17)
[2023-11-26] MEDS ORDERED: LIDOcaine HCl 1% (Local Anesth.) 20 ML VIAL ONE (09:43)
[2023-11-26] MEDS ORDERED: SODIUM CHLORIDE 1,000 ML BTL IR ONE (09:44)
[2023-11-26] MEDS ORDERED: STERILE WATER FOR IRRIGATION 1,000 ML BTL IR ONE (09:44)
[2023-11-26] MEDS ORDERED: SUCCINYLCHOLINE CHLORIDE 20 MG/ML 10ML VIAL IV ONE (11:25)
[2023-11-26] MEDS ORDERED: KETOROLAC TROMETHAMINE 30 MG/ML SDV IV ONE (11:25)
[2023-11-26] MEDS ORDERED: ONDANSETRON HCl 4 MG/2 ML SDV IV ONE (11:25)
[2023-11-26] MEDS ORDERED: ROCURONIUM BROMIDE 10 MG/ML 5ML VIAL IV ONE (11:25)
[2023-11-26] MEDS ORDERED: LIDOCAINE HCL 2% 2ML SDV IV ONE (11:25)
[2023-11-26] MEDS ORDERED: DEXAMETHASONE SODIUM PHOSPHATE PF 10 MG/ML SDV IV ONE (11:25)
[2023-11-26] MEDS ORDERED: LACTATED RINGER'S 1,000 ML BAG IV ONE (11:25)
[2023-11-26] MEDS ORDERED: SUGAMMADEX SODIUM 200 MG/2 ML SDV IV ONE (11:25)
[2023-11-26] MEDS ORDERED: MIDAZOLAM HCL 2 MG/2 ML VIAL IV ONE (11:25)
[2023-11-26] MEDS ORDERED: PROPOFOL 200 MG/20 ML VIAL IV ONE (11:25)
[2023-11-26] MEDS ORDERED: ACETAMINOPHEN 100 ML IV ONE (12:30)
[2023-11-26] MEDS ORDERED: HYDROmorphone HCL 2 MG/AMP ONE ×2 (12:30→12:58)
[2023-11-26] MEDS ORDERED: PERCOCET 5/325M1 TAB PO (12:31)
[2023-11-26] MEDS ORDERED: KETOROLAC TROMETHAMINE 15 MG/ML SDV ONE (13:15)
[2023-11-26 14:58] VITALS: BP 107/65
[2023-11-27] MEDS ORDERED: TORADOL PO (09:47)
== END 2023-11-26 14:41 | disposition home or self-care (01) | DRG 355 ==
LOC: ORM 09:27
PROVIDERS: ATTEND Surgery
PROC: 0WUF4JZ Supplement Abdominal Wall with Synthetic Substitute, Percutaneous Endoscopic Approach (ICD-10-PCS; principal; 2023-11-26)
DX: K42.9 Umbilical hernia without obstruction or gangrene (principal); I10 Essential (primary) hypertension; F17.210 Nicotine dependence, cigarettes, uncomplicated; E66.01 Morbid (severe) obesity due to excess calories
CPT/HCPCS: J0131; J0690; J1100